=== PATIENT | female | born 1975 | race Hispanic/Latino ===

== ENCOUNTER → 2018-09-15 | Day surgery (SDC) | payer BC ==
[2018-09-13 09:34] LABS: BASOPHILS # (AUTO) 0.1 (0.0-0.1); BASOPHILS % 0.8 % (0.0-1.0); EOSINOPHILS # (AUTO) 0.2 (0.0-0.4); HEMATOCRIT 39.4 % (34.2-44.1); HEMOGLOBIN 13.3 g/dL (12.0-16.0); LYMPHOCYTES # (AUTO) 1.4 (1.0-3.2); LYMPHOCYTES % 23.7 % (18.0-39.1); MEAN CORPUSCULAR HEMOGLOBIN 30.7 pg (28-32); MEAN CORPUSCULAR HGB CONC 33.8 g/dL (31-35); MONOCYTES # (AUTO) 0.6 (0.2-0.8); MONOCYTES % 9.5 % (4.4-11.3); NEUTROPHILS # (AUTO) 3.7 (2.1-6.9); NEUTROPHILS % 62.5 % (38.7-80.0); PLATELET COUNT 237 x10e3/uL (140-360); RED BLOOD COUNT 4.33 x10e6/uL (3.6-5.1); RED CELL DISTRIBUTION WIDTH 12.4 % (11.7-14.4)
[2018-09-13 09:53] LABS: BLOOD UREA NITROGEN 19 mg/dL (7-26); BUN/CREATININE RATIO 24 (6-25); CALCIUM 9.9 mg/dL (8.4-10.2); CARBON DIOXIDE 27 mmol/L (22-29); CHLORIDE 102 mmol/L (98-107); EST GLOMERULAR FILTRATION RATE > 60 ML/MIN (60-); GLUCOSE 107 mg/dL (74-118); SODIUM 139 mmol/L (136-145)
--- NOTE | 2018-09-13 11:06 | Diagnostic Imaging Report ---
EXAMINATION: CHEST 2 VIEWS INDICATION: Pre-operative COMPARISON: None FINDINGS: TUBES and LINES: None. LUNGS: The lungs are well-inflated. No focal consolidation or pulmonary edema. Scattered calcified granulomas. PLEURA: No pleural effusion or pneumothorax. HEART AND MEDIASTINUM: The cardiomediastinal silhouette is normal in size and contour. BONES AND SOFT TISSUES: No acute fracture or dislocation. UPPER ABDOMEN: No free air under the diaphragm. IMPRESSION: No focal pneumonia or pulmonary edema. Signed by: Jaleesa Mcdonald MD on 09/13/2018 11:03 AM
[~2018-09-15] MED LIST: BUPIVACAINE HCL 0.5% INJ 30 ML VIAL INJ ONE; CEFAZOLIN SOD 1 GM/NS 50ML 100 ML IV ONE; CYMBALTA60 MG PO; DEXAMETHASONE SOD PHOS INJ 4 MG/ML VIAL ONE; FENTANYL CITRATE/PF 100MCG/2 ML INJ ONE; HYDROCODONE/APAP 5MG-325MG TAB ONE; HYDROMORPHONE 2MG/ML 2 MG/ML ML ONE; KETOROLAC TROMETHAMINE 30 MG/ML VIAL ONE; LAMOTRIGINE100 MG PO; LIDOCAINE HCL 2% LOCAL INJ 5 ML SDV VIAL INJ ONE; MEPERIDINE HCL INJ 25 MG/ML VIAL ONE; MIDAZOLAM HCL 2 MG/2 ML VIAL ONE; NAPROXEN250 MG PO; NEOSTIGMINE 1 MG/ML 10ML VIAL ONE; OMEPRAZOLE40 MG PO; ONDANSETRON HCL INJ 2MG/ML 2ML 2 MG/ML VIAL ONE; PROPOFOL IV EMULSION 10 MG/ML 20 ML VIAL ONE; SEVOFLURANE INHAL SOLN 250 ML PEN BTL ONE; TOPAMAX50 MG PO; TYLENOL WITH C1 EACH PO
--- OUTSIDE RECORDS SUMMARY | 2018-09-15 05:41 | XMS REPORT ---
Author Author [facility] Address Unknown Phone Unavailable Care Team Providers Care Equal Opportunity Representative Name Role Phone ALINE QIU Unavailable Unavailable Problems This patient has no known problems. Allergies, Adverse Reactions, Alerts This patient has no known allergies or adverse reactions. Medications This patient has no known medications. Results Test Description Test Time Test Comments Text Results Atomic Results Result Comments CHEST 2 VIEWS 2018-09-13 11:02:00 [facility] [address] [address] Patient Name: HILLARY DECKER MR #: [id number] : 1975 Age/Sex: 43/F Req #: [id number] Adm Physician: Ordered by: ALINE QIU DPM Report #: [id number] Location: OR Room/Bed: Procedure: [id number] DX/CHEST 2 VIEWS Exam Date: 09/13/18 Exam Time: 919 REPORT STATUS: Signed EXAMINATION: CHEST 2 VIEWS INDICATION: Pre-operative COMPARISON: None FINDINGS: TUBES and LINES: None. LUNGS: The lungs are well-inflated. No focal consolidation or pulmonary edema. Scattered calcified granulomas. PLEURA: No pleural effusion or pneumothorax. HEART AND MEDIASTINUM: The cardiomediastinal silhouette is normal in size and contour. BONES AND SOFT TISSUES: No acute fracture or dislocation. UPPER ABDOMEN: No free air under the diaphragm. IMPRESSION: No focal pneumonia or pulmonary edema. Signed by: Stacia Mdconald MD on 09/13/2018 11:03 AM Dictated By: STACIA MCDONALD MD 110 Transcribed By: RENETTA on 09/13/181102 COPY TO: ALINE QIU DPM
[2018-09-15 11:10] VITALS: BP 124/81
--- NOTE | 2018-09-15 11:33 | Operative Report ---
DATE OF PROCEDURE: 09/15/2018 SURGEON: Samuel Ackerman DPM ROOM NUMBER: [facility]. 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 POSTOPERATIVE DIAGNOSIS: This is a failed implant, 1st MPJ, right foot. PROCEDURES: 1. Removal of failed implant, 1st MPJ, right foot. 2. Fusion 1st metatarsophalangeal joint of right foot with bone graft, plate, and screw. 3. Salvage procedure. PROCEDURE IN DETAIL: The patient was taken to the operating room in a mildly sedated state, placed on the operating table in supine position. She has previously undergone two separate interventions and this otherwise painful 1st metatarsal phalangeal joint. Apparently, the 1st implant was a Cartiva style implant into the 1st met head, which was apparently unsuccessful in alleviating her discomfort. She went back for a 2nd procedure and had a Sloan style total joint implant applied, which also turned out to be problematic. Not only is there no toe purchase or ability to push off, but the hallux seems to be grecia dorsally lateralward and is painful with a lack of toe purchase. She has also developed lesser metatarsalgia. Recommended procedure is fusion with removal of the 1st metatarsophalangeal joint, failed implant at this point. The patient was taken to the operating room in a mildly sedated state, placed on the operating table supine position. Following induction of general anesthetic, the right lower extremity was approached with a dorsal linear incision overlying the previously implanted and through the same incision line previously created. The joint was exposed and it was noted that the silicone implant with titanium grommets had a significant amount of scar tissue in the dorsal medial lateral aspects, this was all remodeled. The Sloan itself had a failure and crack through the hinge thus creating the discomfort and dorsal contracture. The failed implant as well as the titanium grommets were removed. The remaining bone was noted to be viable after debridement. The grommet and silicone interface of the bone were debrided and resected utilizing a combination of oscillating saw and rongeur. The distance of the gap was measured and the appropriate allograft was used with cadaver bone. This bone bank bone was remodeled insufficiently cut to fit the area. Augment was used to help accelerate the healing as this will be a difficult bone fusion with the two failed surgeries implant interface and cadaver bone. The bone graft itself was soaked in augment. All surrounding tissues were curetted including the intramedullary canal, where the stem of the implant had previously resided. The areas were packed with bone graft bone residual and augment. Accelerant was injected into the area of the appropriately-sized and remodeled graft was then placed into the void and two crossing K-wires were inserted to hold the position that was manipulated for the fusion. The underlying bone graft and bone were excellent approximation when dorsal compression plate was applied. The plate was fixated 1st to the distal aspect of the proximal phalanx and bridging the gap of the actual implant, which had been fenestrated and fitted as had the remaining bone from the previous implant. The compression slot at the proximal-most aspect of the proximal guide was then utilized with a non-locking screw to create compression. This was a 10-degrees angle plate to give her adequate toe purchase, but also with the ability to wearing shoe heel heights and the remaining screw holes were filled into the plate and with locking screws, and the area was irrigated with copious amounts of sterile saline solution. The remaining augment was injected around the bone fusion site and remaining bone graft was packed accordingly, where any voids existed. The procedure was all done under fluoroscopy and excellent alignment, and compression was noted. The deep closure was a combination of 3-0 Vicryl. Most of the capsule on the medial aspect had been debrided as a result of the scar tissue, however, the medial capsule was healthy and good for closure. The skin was closed over the extensor tendon, which was noted to be healthy, but bound down in scar tissue to the skin and subcutaneous tissue, this was all freed prior to closure. The areas of surgery were then blocked with 0.5% Marcaine. No steroid was used and the appropriate mildly compressive dressings were applied with a posterior splint and released pneumatic thigh tourniquet, showed a normal hyperemic flush to all digits of the right foot. The patient tolerated both anesthetic and procedure very well. She may need a bone stimulator to heal this difficult fusion site with allograft bone when we followup postoperatively. She will be returning to see me within 1-week postoperatively. JAY Mitchell/MONY /[id number]
== END | disposition home or self-care (01) ==
LOC: OR 05:39
PROVIDERS: ATTEND Podiatrist Foot Surgery
DX: T84.098A Other mechanical complication of other internal joint prosthesis, initial encounter (principal); T84.84XA Pain due to internal orthopedic prosthetic devices, implants and grafts, initial encounter; M19.271 Secondary osteoarthritis, right ankle and foot; M79.671 Pain in right foot; F41.9 Anxiety disorder, unspecified; F32.9 Major depressive disorder, single episode, unspecified; K21.9 Gastro-esophageal reflux disease without esophagitis; Z88.2 Allergy status to sulfonamides; Z01.810 Encounter for preprocedural cardiovascular examination; Z01.812 Encounter for preprocedural laboratory examination; Z01.811 Encounter for preprocedural respiratory examination
CPT/HCPCS: 28750; 36415; 71046; 80048; 85025; 93005; C1713 ×8; J0690; J1100; J1170; J1885; J2001; J2175; J2250; J2405; J2704; J2710; J3010

== ENCOUNTER 2019-03-29 20:02 | Emergency (ER) | payer BC, OTHER ==
[~2019-03-29] VITALS: Ht 165.1 cm; Wt 84.4 kg
[~2019-03-29 20:02] MED LIST changes: -BUPIVACAINE HCL 0.5% INJ 30 ML VIAL INJ ONE; -CEFAZOLIN SOD 1 GM/NS 50ML 100 ML IV ONE; -DEXAMETHASONE SOD PHOS INJ 4 MG/ML VIAL ONE; -FENTANYL CITRATE/PF 100MCG/2 ML INJ ONE; -HYDROCODONE/APAP 5MG-325MG TAB ONE; -HYDROMORPHONE 2MG/ML 2 MG/ML ML ONE; -KETOROLAC TROMETHAMINE 30 MG/ML VIAL ONE; -LIDOCAINE HCL 2% LOCAL INJ 5 ML SDV VIAL INJ ONE; -MEPERIDINE HCL INJ 25 MG/ML VIAL ONE; -MIDAZOLAM HCL 2 MG/2 ML VIAL ONE; -NEOSTIGMINE 1 MG/ML 10ML VIAL ONE; -ONDANSETRON HCL INJ 2MG/ML 2ML 2 MG/ML VIAL ONE; -PROPOFOL IV EMULSION 10 MG/ML 20 ML VIAL ONE; -SEVOFLURANE INHAL SOLN 250 ML PEN BTL ONE
[2019-03-29] MEDS ORDERED: ORPHENADRINE CITRATE 30 MG/ML VIAL IM ONE (21:00)
[2019-03-29] MEDS ORDERED: KETOROLAC TROMETHAMINE 60 MG/2 ML VIAL IM ONE (21:00)
[2019-03-29 21:11] VITALS: BP 132/84
[2019-03-29] MEDS ORDERED: HYDROCODONE/APAP 7.5MG-325MG 1 EA TAB PO PRN (22:15)
== END 2019-03-29 23:30 | disposition home or self-care (01) ==
LOC: ER 20:02
DX: M54.42 Lumbago with sciatica, left side (principal); I10 Essential (primary) hypertension; F41.9 Anxiety disorder, unspecified; F32.9 Major depressive disorder, single episode, unspecified; K21.9 Gastro-esophageal reflux disease without esophagitis
CPT/HCPCS: 96372; 99282; J1885; J2360

== ENCOUNTER → 2019-09-21 | Day surgery (SDC) | payer OTHER ==
[2019-09-17 13:25] LABS: BASOPHILS # (AUTO) 0.1 (0.0-0.1); BASOPHILS % 0.8 % (0.0-1.0); EOSINOPHILS # (AUTO) 0.1 (0.0-0.4); EOSINOPHILS % 1.5 % (0.0-6.0); HEMATOCRIT 38.5 % (34.2-44.1); HEMOGLOBIN 12.6 g/dL (12.0-16.0); LYMPHOCYTES # (AUTO) 1.7 (1.0-3.2); LYMPHOCYTES % 23.3 % (18.0-39.1); MEAN CORPUSCULAR HGB CONC 32.7 g/dL (31-35); MEAN CORPUSCULAR VOLUME 91.7 fL (81-99); MONOCYTES # (AUTO) 0.6 (0.2-0.8); MONOCYTES % 8.8 % (4.4-11.3); NEUTROPHILS # (AUTO) 4.7 (2.1-6.9); PLATELET COUNT 251 x10e3/uL (140-360); RED CELL DISTRIBUTION WIDTH 12.9 % (11.7-14.4)
--- NOTE | 2019-09-17 13:51 | Diagnostic Imaging Report ---
EXAMINATION: CHEST 2 VIEWS INDICATION: Pre-operative COMPARISON: Chest radiograph 09/13/2018 FINDINGS: LINES/TUBES:None LUNGS:The lungs are well-inflated. No focal consolidation or pulmonary edema. PLEURA:No pleural effusion or pneumothorax. MEDIASTINUM:The cardiomediastinal silhouette appears normal in size and shape. BONES/SOFT TISSUES:No acute osseous injury. ABDOMEN:No free air under the diaphragm. IMPRESSION: No focal pneumonia or pulmonary edema. Signed by: Jaleesa Mcdonald MD on 09/17/2019 1:48 PM
[~2019-09-21] MED LIST changes: +ATENOLOL50 MG; +BUPIVACAINE HCL 0.5% INJ 30 ML VIAL INJ ONE; +CEFAZOLIN SOD 1 GM/NS 50ML 100 ML IV ONE; +DEXAMETHASONE SOD PHOS INJ 4 MG/ML VIAL ONE; +FENTANYL CITRATE/PF 100MCG/2 ML INJ ONE; +HYDROMORPHONE 1MG/1ML INJ ONE; +KETOROLAC TROMETHAMINE 30 MG/ML VIAL ONE; +LIDOCAINE HCL 2% LOCAL INJ 5 ML SDV VIAL INJ ONE; +NEOSTIGMINE 1 MG/ML 10ML VIAL ONE; +ONDANSETRON HCL INJ 2MG/ML 2ML 2 MG/ML VIAL ONE; +PROPOFOL IV EMULSION 10 MG/ML 20 ML VIAL ONE; +SEVOFLURANE INHAL SOLN 250 ML PEN BTL ONE
[2019-09-21 09:50] VITALS: BP 120/73
--- NOTE | 2019-09-21 10:33 | Operative Report ---
DATE OF PROCEDURE: 09/21/2019 SURGEON: Samuel Ackerman DPM PREOPERATIVE DIAGNOSES: 1. Failed fusion 1st metatarsophalangeal joint, right foot. 2. Fractured hardware plate, right foot. POSTOPERATIVE DIAGNOSES: 1. Failed fusion 1st metatarsophalangeal joint, right foot. 2. Fractured hardware plate, right foot. NAME OF THE OPERATION: 1. Removal of hardware, failed fractured plate, right foot. 2. Fusion 1st metatarsophalangeal joint, right foot. ANESTHESIA: General endotracheal. HEMOSTASIS: Right thigh tourniquet at 350 mmHg. PROCEDURE IN DETAIL: The patient was taken to the operating room in a mildly sedated state, placed on the operating table in supine position. Following induction of general anesthetic, the right lower extremity was elevated to 60 degrees to exsanguinate for inflating the pneumatic thigh tourniquet at 350 mmHg to create hemostasis. The right lower extremity was placed on the operating table prior to performing following procedure: PROCEDURE #1: Removal of hardware, 1st metatarsophalangeal joint of the right foot. An incision was placed overlying the dorsal medial aspect of the 1st metatarsophalangeal joint of the right foot. The incision was deepened via sharp and blunt dissection down to the level of the dorsal capsular structure. Care was taken to identify and retract all vital structures encountered. The capsule was incised and the old hardware was noted within the base of the surgical site. A fracture of the plate had occurred at the fusion site and the plate was now overlapping itself. The plate was removed with all screws. Hardware being removed and the plate removed in two pieces. The joint itself was noted to have a nonunion with motion about the old fusion site. The site was evaluated under fluoroscopy. All hardware was removed. There was no obvious necrotic bone, but simply a failed fusion. The fusion was taken down and the drill holes were used to fenestrate the underlying bone and soft tissue to facilitate healing. The area was irrigated with copious amounts of sterile saline solution and cross screws were used, starting 1st with stabilizing K-wires for the [employer] compression screw kit. The K-wires were placed from the medial aspect distal to proximal, as well as proximal to distal. The initial screw fixation was a 30 mm 4.3 screw across the K-wire from distal medial to proximal lateral. This allowed for excellent stabilization and compression utilizing the specialized compression screw from [employer] with threads both in the head and distally. A smaller 3.0 screw was used for further stabilization from proximal to distal through the open incision. A separate incision had been placed for the distal insertion of pin to decrease further dissection from the dorsal aspect. The areas were irrigated with copious amounts of sterile saline solution. Fluoroscopy was used to ensure excellent fixation and compression and stabilization. This having been accomplished, deep closure with 3-0 Vicryl, subcutaneous closure with 4-0 Vicryl, and skin closure with 4-0 nylon. The separate stab incision for the distal pin was also closed with 4-0 nylon. The areas of surgery then blocked with 0.5 Marcaine plain. No steroid was used in the injection. The release of the pneumatic thigh tourniquet showed normal hyperemic flush to all digits of the right foot and the patient left the operating room, vital signs stable in apparent satisfactory condition and tolerated both anesthetic and procedure very well. JAY Mitchell/MONY /[id number]
== END | disposition home or self-care (01) ==
LOC: OR 05:37
PROVIDERS: ATTEND Podiatrist Foot Surgery
DX: T84.89XA Other specified complication of internal orthopedic prosthetic devices, implants and grafts, initial encounter (principal); S92.311A Displaced fracture of first metatarsal bone, right foot, initial encounter for closed fracture; K21.9 Gastro-esophageal reflux disease without esophagitis; I10 Essential (primary) hypertension; F17.210 Nicotine dependence, cigarettes, uncomplicated; Y83.8 Other surgical procedures as the cause of abnormal reaction of the patient, or of later complication, without mention of misadventure at the time of the procedure; X58.XXXA Exposure to other specified factors, initial encounter; Z88.2 Allergy status to sulfonamides; Z01.810 Encounter for preprocedural cardiovascular examination; Z01.812 Encounter for preprocedural laboratory examination; Z01.818 Encounter for other preprocedural examination; Z11.59 Encounter for screening for other viral diseases
CPT/HCPCS: 36415; 71046; 76000; 85025; 93005; C1713; J0690; J1100; J1170; J1885; J2001; J2405; J2710; J3010; U0002

== ENCOUNTER 2021-05-12 21:14 | Emergency (ER) | payer OTHER ==
[~2021-05-12] VITALS: Ht 165.1 cm; Wt 84.4 kg
[~2021-05-12 21:14] MED LIST changes: -BUPIVACAINE HCL 0.5% INJ 30 ML VIAL INJ ONE; -CEFAZOLIN SOD 1 GM/NS 50ML 100 ML IV ONE; -DEXAMETHASONE SOD PHOS INJ 4 MG/ML VIAL ONE; -FENTANYL CITRATE/PF 100MCG/2 ML INJ ONE; -HYDROMORPHONE 1MG/1ML INJ ONE; -KETOROLAC TROMETHAMINE 30 MG/ML VIAL ONE; -LIDOCAINE HCL 2% LOCAL INJ 5 ML SDV VIAL INJ ONE; -NEOSTIGMINE 1 MG/ML 10ML VIAL ONE; -ONDANSETRON HCL INJ 2MG/ML 2ML 2 MG/ML VIAL ONE; -PROPOFOL IV EMULSION 10 MG/ML 20 ML VIAL ONE; -SEVOFLURANE INHAL SOLN 250 ML PEN BTL ONE
[2021-05-12 21:48] LABS: BASOPHILS # (AUTO) 0.1 (0.0-0.1); BASOPHILS % 0.5 % (0.0-1.0); EOSINOPHILS # (AUTO) 0.1 (0.0-0.4); EOSINOPHILS % 0.6 % (0.0-6.0); HEMATOCRIT 37.1 % (34.2-44.1); HEMOGLOBIN 12.6 g/dL (12.0-16.0); LYMPHOCYTES # (AUTO) 2.2 (1.0-3.2); LYMPHOCYTES % 20.3 % (18.0-39.1); MEAN CORPUSCULAR HEMOGLOBIN 31.3 pg (28-32); MEAN CORPUSCULAR VOLUME 92.3 fL (81-99); MONOCYTES # (AUTO) 1.2 (0.2-0.8); MONOCYTES % 10.8 % (4.4-11.3); NEUTROPHILS # (AUTO) 7.4 (2.1-6.9); NEUTROPHILS % 67.3 % (38.7-80.0); PLATELET COUNT 270 x10e3/uL (140-360); RED BLOOD COUNT 4.02 x10e6/uL (3.6-5.1); RED CELL DISTRIBUTION WIDTH 12.9 % (11.7-14.4)
[2021-05-12 22:06] LABS: ALBUMIN 4.2 g/dL (3.5-5.0); ALBUMIN/GLOBULIN RATIO 1.2 (0.8-2.0); ANION GAP 12.9 mmol/L (8-16); CALCIUM 9.1 mg/dL (8.4-10.2); CREATININE, SERUM 0.85 mg/dL (0.57-1.11); POTASSIUM 3.9 mmol/L (3.5-5.1)
[2021-05-12] MEDS ORDERED: VENTOLIN HFA18 GM INH (23:28)
[2021-05-12] MEDS ORDERED: PREDNISONE20 MG PO (23:28)
[2021-05-12 23:31] VITALS: BP 150/90
== END 2021-05-12 23:35 | disposition home or self-care (01) ==
LOC: ER 21:31
DX: R00.2 Palpitations (principal); R07.89 Other chest pain; I10 Essential (primary) hypertension; K21.9 Gastro-esophageal reflux disease without esophagitis; F41.9 Anxiety disorder, unspecified
CPT/HCPCS: 36415; 71045; 80053; 82550; 82553; 84484; 84702; 85025; 85379; 93005; 99283